=== PATIENT | female | born 2000 | race Caucasian/White ===

== ENCOUNTER 2020-05-17 17:39 | Emergency (ER) | payer OTHER ==
[2020-05-17 18:03] VITALS: BP 116/58; PULSE 81; TEMP 97; BMI 25.4
[2020-05-17 19:50] LABS: EPI CELLS 16 /uL (0-25.1); HYALINE CASTS 10 /uL (0-3.1); PH,URINE 5.5 (5.0-8.0); URINE APPEARANCE CLOUDY; URINE BACTERIA 358 /uL (0-1359); URINE BILIRUBIN NEGATIVE (NEGATIVE); URINE COLOR YELLOW; URINE GLUCOSE (UA) NEGATIVE (NEGATIVE); URINE KETONE 1+ (NEGATIVE); URINE LEUK ESTERASE 2+ (NEGATIVE); URINE NITRITE NEGATIVE (NEGATIVE); URINE PROTEIN NEGATIVE (NEGATIVE); URINE RBC 37 /uL (0-23.9); URINE UROBILINOGEN 0.2 mg/dL (0.2-1.0); URINE WBC 438 /uL (0-25.8)
== END 2020-05-17 20:30 | disposition home or self-care (01) ==
LOC: JERFT 17:39
DX: O23.41 Unspecified infection of urinary tract in pregnancy, first trimester (principal); Z3A.01 Less than 8 weeks gestation of pregnancy
CPT/HCPCS: 81003; 84703; 87086; 87186; 99283-25